=== PATIENT | female | born 1985 | race Caucasian/White ===

== ENCOUNTER 2023-05-20 09:57 | Emergency (ER) | payer OTHER, SELFPAY ==
--- NOTE | ~2023-05-20 | XR_ITS ---
XR femur RT min 2V DATE: 05/20/2023 12:53 INDICATION: Right thigh pain, abrasion, swelling from injury TECHNIQUE: AP and crosstable lateral views COMPARISON: None FINDINGS: The no fracture or dislocation, avascular necrosis or bone destruction. Normal alignment at the hip and knee joints. IMPRESSION: , Periosteal reaction. Negative Reviewed, dictated and finalized at location A.
[2023-05-20 10:14] VITALS: PULSE 110; RESP 22; TEMP 36.1; O2SAT 100
[2023-05-20 10:16] VITALS: BP 118/96; PULSE 100; RESP 12; TEMP 36.6; O2SAT 100
[2023-05-20 10:29] VITALS: PULSE 100
[2023-05-20 11:18] VITALS: BP 110/83; PULSE 95; RESP 17; O2SAT 100
[2023-05-20 12:43] VITALS: BP 108/77; PULSE 90; RESP 15; O2SAT 100
[2023-05-20 13:15] VITALS: BP 95/80; PULSE 94; RESP 18; O2SAT 100
--- NOTE | 2023-05-20 13:22 | ED.GENADULT ---
HPI - General Adult General Chief complaint: Unspecified Stated complaint: hit by forklift at work Time Seen by Provider: 05/20/23 12:00 History of Present Illness HPI narrative: This is a 37-year-old female, presents emergency department after being struck by a forklift yesterday. The patient states she was stacking boxes, when she was sideswiped by the [place] on the forklift. It struck her to the ground, striking her right lateral thigh. She believes her hit her head but did not lose consciousness. She complains of 2/10 pain at rest and 5-6/10 pain with movement. She has no other complaints at this time. Related Data Allergies Allergy/AdvReac Type Severity Reaction Status Date / Time No Known Allergies Allergy Verified 05/20/23 10:26 Review of Systems Review of Systems: CONSTITUTIONAL: Denies fever, chills, or sweats. CARDIOVASCULAR: Denies chest pain, palpitations, or edema. RESPIRATORY: Denies cough or dyspnea. GASTROINTESTINAL: Denies abdominal pain, nausea, vomiting, or diarrhea. GENITOURINARY: Denies dysuria or hematuria. SKIN: Denies rash or itching. MUSCULOSKELETAL: Right leg pain denies back pain, or myalgia. NEUROLOGIC: Denies headache, numbness, dizziness, or weakness. PSYCHIATRIC: Denies anxiety or depression. PMFSH Past Medical History Medical History (Updated 05/20/23 @ 22:29 by Freddie Tang MD) No significant past medical history Surgical History Surgical History (Updated 05/20/23 @ 22:29 by Freddie Tang MD) No significant past surgical history Social History Social History (Updated 05/20/23 @ 22:30 by Freddie Tang MD) Tobacco type: e-cigarettes/vaping Alcohol intake: current Drinks per week: 2 Substance use: never Exam Narrative: GENERAL: Well-developed, well-nourished, and in no acute distress. HEAD: Normocephalic, a 3 cm hematoma is noted to the right parietal scalp without overlying injury to the skin EYES: PERRLA and EOMI. NECK: Supple. No midline spine tenderness to palpation, no step-off or crepitus CHEST: Clear to auscultation. No respiratory distress. No wheezes rales or rhonchi HEART: Regular rate and rhythm. No murmur heard. Normal peripheral pulses. ABDOMEN: Soft, nontender, nondistended, normal active bowel sounds. EXTREMITIES: A 15 x 8 cm area of ecchymosis is noted to the lateral aspect of the right thigh the proximal one third. There is a linear abrasion measuring approximately 20 cm past the center without laceration. There is no palpable thrill. Normal range of motion. No edema. SKIN: Warm, dry, no rash. NEURO: Alert and oriented x3. Moving all 4 limbs purposefully. PSYCH: Normal mood and affect. Course Course Emergency Course: 13:28 - X-ray not concerning for fracture or dislocation. The patient declined labs including CK. There are no indications of active bleeding on the patient's exam. Will discharge with pain medications and recommendations to follow-up with her primary care doctor. Discussed return and emergency precautions including signs/symptoms of hemorrhage and rhabdomyolysis. The patient voiced understanding and is comfortable with the plan. All questions answered to her satisfaction. Vital Signs Vital signs: Vital Signs Temperature 97.0 F L 05/20/23 10:14 Pulse Rate 110 H 05/20/23 10:14 Respiratory Rate 22 H 05/20/23 10:14 Pulse Oximetry 100 05/20/23 10:14 Temperature 97.8 F 05/20/23 10:16 Pulse Rate 94 05/20/23 13:15 Respiratory Rate 18 05/20/23 13:15 Blood Pressure 95/80 L 05/20/23 13:15 Pulse Oximetry 100 05/20/23 13:15 Oxygen Delivery Room Air 05/20/23 10:16 Medical Decision Making [facility] Narrative Medical decision making narrative: Plan: Labs, imaging, pain control, reassess Differential Diagnosis Differential Diagnosis: Contusion, fracture, rhabdomyolysis, hematoma, other Vital Signs Vital Signs: Vital Signs Temperature 97.0 F L 05/20/23 10:14 Puls
--- NOTE | 2023-05-20 13:25 | PC.NURSE ---
Pt refused to have labs drawn
[2023-05-20] MEDS: LIDOCAINE 5% PATCH 1 PATCH TRANSDERM (13:31)
[2023-05-20] MEDS: ACETAMINOPHEN 500 MG TABLET 1000 MG PO (13:32)
== END 2023-05-20 14:05 | disposition home or self-care (01) ==
PROVIDERS: Emergency Provider Preventive Medicine Aerospace Medicine
DX: S70.11XA Contusion of right thigh, initial encounter (principal); F17.290 Nicotine dependence, other tobacco product, uncomplicated; V83.9XXA Unspecified occupant of special industrial vehicle injured in nontraffic accident, initial encounter
CPT/HCPCS: 73552; 99283; A9270